=== PATIENT | female | born 1965 | race Caucasian/White ===

== ENCOUNTER → 2017-05-30 | Day surgery (SDC) | payer MEDICAID ==
[~2017-05-30] MED LIST: ALLERCLEAR10 MG PO; AMBIEN PO; BACLOFEN20 M1 PO; BACLOFEN20 MG PO; BLACK COHOSH540 MG PO; CALCITRATE + V1 EACH PO; CHANTIX PO; DESYREL50 MG DOB; DITROPAN5 MG PO; DYAZIDE 37.5/251 CAP; EFFEXOR; ESCITALOPRAM OX20 MG PO; FLEXERIL; HYDROCODON-ACE1 EAC5 PO; HYDROCODON-ACE1 EAC7 PO; HYDROCODONE-APA1 T54 PO; KLONOPIN1 MG PO; LEXAPRO20 MG PO; LISINOPRIL5 MG PO; LODINE500 M1 PO; LORTAB 7.5-5001 TAB; METFORMIN HCL500 M3 PO; METOPROLOL SUCC50 MG PO; NORCO 7.5-3251 EACH PO; PERCOCET 5/321 UDTAB PO; PERCOCET5/325 PO; PRILOSEC PO; SEROQUEL25 MG PO; TOPROL XL PO; TOVIAZ4 MG PO; VICODIN; VITAMIN D32000 UNI1 PO; VOLTAREN75 MG PO; ZOLPIDEM TARTRA10 M1 PO
--- NOTE | ~2017-05-30 | OR ---
Unit #: [id number] #: [id number] Patient: JESSY SPRINGER [id number] [address] [place], [place] [address] [id number] MR#: [id number] NAME: JESSY SPRINGER ROOM: Date of Procedure: 05/30/2017 Admission Date: 05/30/2017 Surgeon: Troy Ross M.D. : 1965 Attending Physician: Troy Ross M.D. Referring Physician: Troy Ross M.D. Primary Care Physician: Dina Paul A.P.R.N. OPERATIVE REPORT PROCEDURES PERFORMED Colonoscopy to cecum, internal hemorrhoidal banding x2. INDICATIONS FOR PROCEDURE A 52-year-old female with rectal bleeding, average risk for colorectal cancer, undergoing colonoscopy for evaluation, and also with possible hemorrhoidal banding. MEDICATIONS Monitored anesthesia. POSTOPERATIVE FINDINGS 1. Colonoscopy completed to cecum. Good prep. No polyps or masses. 2. Internal hemorrhoids grade 2 to 3, two bands were placed. PLAN Repeat colonoscopy in 10 years. DESCRIPTION OF PROCEDURE The patient was explained of the procedure, risks, and benefits along with risks and benefits of anesthesia. She was brought to the endoscopy room. Propofol anesthesia was given. Rectal exam was done, which was normal. Colonoscope was lubricated, passed up the rectum, advanced under direct vision all the way to the cecum. Cecum was identified by ileocecal valve and appendiceal orifice. I then started to pull the scope out carefully looking. No polyps, masses, or colitis was seen. Mucosa was normal and healthy. Prep was good. I retroflexed in the rectum, large hemorrhoids seen. At this time, we switched an EGD scope with multi-shooter and placed 2 bands right above the dentate line. Scope was gently pulled out. She tolerated it well. No major complications were seen. Dictated by... Deborah Alvarado/gifty TD: 05/30/2017 18:34 JOB #: [id number] CC: Yaya Roberto M.D. Unit #: [id number] #: [id number] Patient: JESSY SPRINGER OPERATIVE REPORT Page 1 of 1 X Troy Ross MD PROCEDURE OPERATIVE NOTE
== END | disposition home or self-care (01) ==
LOC: COPS 07:28
DX: K64.1 Second degree hemorrhoids (principal); K21.9 Gastro-esophageal reflux disease without esophagitis; E11.9 Type 2 diabetes mellitus without complications; I10 Essential (primary) hypertension; F17.210 Nicotine dependence, cigarettes, uncomplicated; Z87.01 Personal history of pneumonia (recurrent); Z79.899 Other long term (current) drug therapy; Z79.891 Long term (current) use of opiate analgesic; Z98.51 Tubal ligation status; Z98.890 Other specified postprocedural states
CPT/HCPCS: 82947; J2250; J3010